=== PATIENT | female | born 1995 | race African-American/Black ===

== ENCOUNTER 2020-03-04 07:28 | Emergency (ER) | payer MEDICAID ==
[~2020-03-04] VITALS: Ht 170.2 cm; Wt 71.7 kg
[2020-03-04 07:46] VITALS: BP 136/94
== END 2020-03-04 09:17 | disposition home or self-care (01) ==
LOC: ER 07:28
DX: F41.1 Generalized anxiety disorder (principal); F32.9 Major depressive disorder, single episode, unspecified; F17.210 Nicotine dependence, cigarettes, uncomplicated; Z76.0 Encounter for issue of repeat prescription

== ENCOUNTER 2020-08-11 15:39 | Emergency (ER) | payer MEDICAID ==
[~2020-08-11] VITALS: Ht 172.7 cm; Wt 83.9 kg
[2020-08-11 16:25] VITALS: BP 144/85
== END 2020-08-11 17:27 | disposition home or self-care (01) ==
LOC: ER 15:39
DX: S61.210A Laceration without foreign body of right index finger without damage to nail, initial encounter (principal); F17.210 Nicotine dependence, cigarettes, uncomplicated; W26.0XXA Contact with knife, initial encounter; Y93.89 Activity, other specified; Y92.090 Kitchen in other non-institutional residence as the place of occurrence of the external cause; Y99.8 Other external cause status
CPT/HCPCS: 12001; 99282; J2001